=== PATIENT | male | born 1950 | race Caucasian/White ===

== ENCOUNTER 2020-10-04 20:18 | Emergency (ER) | payer MEDICARE, BC ==
--- NOTE | 2020-10-04 21:32 | EDM.PDOC ---
ED HPI GENERAL MEDICAL PROBLEM - General Chief Complaint: General Stated Complaint: ABNORMAL LAB RESULTS Time Seen by Provider: 10/04/20 21:25 Source of Information: Reports: Patient, Provider History Limitations: Reports: No Limitations - History of Present Illness INITIAL COMMENTS - FREE TEXT/NARRATIVE: This 70 yo male patient was advised to come to the ED by his Primary Care Facility due to an "elevated lab value". The patient did not know what lab was elevated. The patient reports he was seen today in the [facility] at 1500 today due to multiple issues. The patient reports he has been having shortness of breath and chest pain over the past 4 days. The patient reports his chest pain has actually been going on for longer than that, but does not know exactly when it started. The patient also report he has been having a migraine headache. The patient reports he did start taking Augmentin on his own due to chills that were present last night, but his chills were gone by this morning. The patient's provider did call to advise that the patient had an elevated D-dimer today, but no further evaluation was done as the clinic was closed by the time she got those results. Onset: Unknown/Unsure Duration: Week(s):, Constant, Getting Worse Location: Reports: Head, Chest Quality: Reports: Ache, Dull Severity: Moderate Improves with: Reports: None Worsens with: Reports: None Associated Symptoms: Reports: Chest Pain, Fever/Chills, Shortness of Breath Headache Pain Score (Numeric/FACES): 4 - Related Data Allergies Allergy/AdvReac Type Severity Reaction Status Date / Time aspirin Allergy Other Verified 01/02/20 14:44 ginkgo biloba Allergy Other Verified 01/02/20 14:44 ibuprofen [From Advil] Allergy Swelling Verified 01/02/20 14:44 Home Meds: Home Meds Doxazosin [Cardura] 4 mg PO DAILY 01/03/20 [History] Ketorolac [Toradol] 10 mg PO Q6HR PRN 01/03/20 [History] Tamsulosin [Flomax] 10/04/20 [History] Past Medical History HEENT History: Reports: None Cardiovascular History: Reports: Arrhythmia Respiratory History: Reports: None Gastrointestinal History: Reports: None Genitourinary History: Reports: Prostate Disorder Neurological History: Reports: Migraines Psychiatric History: Reports: None Endocrine/Metabolic History: Reports: None Immunologic History: Reports: None Oncologic (Cancer) History: Reports: None Dermatologic History: Reports: None - Infectious Disease History Infectious Disease History: Reports: None - Past Surgical History Head Surgeries/Procedures: Reports: None Social & Family History - Family History Family Medical History: No Pertinent Family History - Tobacco Use Tobacco Use Status *Q: Never Tobacco User Second Hand Smoke Exposure: No - Caffeine Use Caffeine Use: Reports: Coffee - Recreational Drug Use Recreational Drug Use: No ED ROS GENERAL - Review of Systems Review Of Systems: Comprehensive ROS is negative, except as noted in HPI. ED EXAM, GENERAL - Physical Exam Exam: See Below Exam Limited By: No Limitations General Appearance: Alert, WD/WN, Anxious, Thin Eye Exam: Bilateral Eye: EOMI, Normal Inspection, PERRL Ears: Normal External Exam, Normal Canal, Hearing Grossly Normal, Normal TMs Nose: Normal Inspection, Normal Mucosa, No Blood Throat/Mouth: Normal Inspection, Normal Lips, Normal Teeth, Normal Gums, Normal Oropharynx, Normal Voice, No Airway Compromise Head: Atraumatic, Normocephalic Neck: Normal Inspection, Supple, Non-Tender, Full Range of Motion Respiratory/Chest: No Respiratory Distress, Lungs Clear, Normal Breath Sounds, No Accessory Muscle Use, Chest Non-Tender Cardiovascular: Normal Peripheral Pulses, Regular Rate, Rhythm, No Edema, No Gallop, No JVD, No Murmur, No Rub, Extra Beats GI/Abdominal: Normal Bowel Sounds, Soft, Non-Tender, No Organomegaly, No Distention, No Abnormal Bruit, No Mass (Male) Exam: Deferred Rectal (Males) Exam: Deferred Back Exam: Normal Inspection, Full Range of Motion, NT Extremities: Normal Inspection, Normal Range of Motion, Non-Tender, Normal Capillary Refill, No Pedal Edema Neurological: Alert, Oriented, CN II-XII Intact, Normal Cognition, Normal Gait, Normal Reflexes, No Motor/Sensory Deficits Psychiatric: Anxious Skin Exam: Warm, Dry, Intact, Normal Color, No Rash Lymphatic: No Adenopathy #1 Interpretation EKG Date: 10/04/20 Time: 21:08 Rhythm: NSR Rate (Beats/Min): 97 [place]: Normal P-Wave: Present QRS: Normal ST-T: Normal QT: Normal EKG Interpretation Comments: with PAC's Course - Vital Signs Last Recorded V/S: Last Vital Signs Temp 97.9 F 10/04/20 21:04 Pulse 105 H 10/04/20 21:04 Resp 18 10/04/20 21:04 BP 138/85 10/04/20 21:04 Pulse Ox 96 10/04/20 21:04 - Orders/Labs/Meds Orders: Active Orders 24 hr Category Date Time Status EKG Documentation Completion [RC] STAT Care 10/04/20 21:19 Active Labs: Laboratory Tests 10/04/20 10/04/20 10/04/20 Range/Units 21:30 21:30 21:30 WBC 4.4 L (5.0-10.0) 10^3/uL RBC 4.82 (4.6-6.2) 10^6/uL Hgb 13.6 L (14.0-18.0) g/dL Hct 39.9 L (40.0-54.0) % MCV 82.8 (80-100) fL MCH 28.2 (27.0-34.0) pg MCHC 34.1 (33.0-35.0) g/dL Plt Count 142 L (150-450) 10^3/uL Neut % (Auto) 65.7 (42.2-75.2) % Lymph % (Auto) 17.6 L (20.5-50.1) % Catron % (Auto) 13.1 H (2-8) % Eos % (Auto) 2.5 (1.0-3.0) % Baso % (Auto) 1.1 H (0.0-1.0) % PT 10.9 (9.0-12.0) SEC INR 1.1 (0.9-1.2) D-Dimer, Quantitative 3620 H (0-400) ng/mL Sodium 142 (136-145) mmol/L Potassium 3.6 (3.5-5.1) mmol/L Chloride 107 (98-107) mmol/L Carbon Dioxide 27 (21-32) mmol/L Anion Gap 11.6 (7-13) mEq/L BUN 14 (7-18) mg/dL Creatinine 1.02 (0.70-1.30) mg/dL Est Cr Clr Drug Dosing 66.58 mL/min Estimated GFR (MDRD) > 60 BUN/Creatinine Ratio 13.7 (No establ ref range) Glucose 139 H (70-99) mg/dL Lactic Acid (0.4-2.0) mmol/L Calcium 8.2 L (8.5-10.1) mg/dL Total Bilirubin 0.3 (0.2-1.0) mg/dL AST 21 (15-37) U/L ALT 22 (16-63) U/L Alkaline Phosphatase 67 (46-116) U/L B-Natriuretic Peptide 52 (0-100) pg/ml Total Protein 6.0 L (6.4-8.2) g/dL Albumin 2.7 L (3.4-5.0) g/dL Globulin 3.3 Albumin/Globulin Ratio 0.82 /03/16 Range/Units 21:30 WBC (5.0-10.0) 10^3/uL RBC (4.6-6.2) 10^6/uL Hgb (14.0-18.0) g/dL Hct (40.0-54.0) % MCV (80-100) fL MCH (27.0-34.0) pg MCHC (33.0-35.0) g/dL Plt Count (150-450) 10^3/uL Neut % (Auto) (42.2-75.2) % Lymph % (Auto) (20.5-50.1) % Catron % (Auto) (2-8) % Eos % (Auto) (1.0-3.0) % Baso % (Auto) (0.0-1.0) % PT (9.0-12.0) SEC INR (0.9-1.2) D-Dimer, Quantitative (0-400) ng/mL Sodium (136-145) mmol/L Potassium (3.5-5.1) mmol/L Chloride (98-107) mmol/L Carbon Dioxide (21-32) mmol/L Anion Gap (7-13) mEq/L BUN (7-18) mg/dL Creatinine (0.70-1.30) mg/dL Est Cr Clr Drug Dosing mL/min Estimated GFR (MDRD) BUN/Creatinine Ratio (No establ ref range) Glucose (70-99) mg/dL Lactic Acid 1.7 (0.4-2.0) mmol/L Calcium (8.5-10.1) mg/dL Total Bilirubin (0.2-1.0) mg/dL AST (15-37) U/L ALT (16-63) U/L Alkaline Phosphatase (46-116) U/L B-Natriuretic Peptide (0-100) pg/ml Total Protein (6.4-8.2) g/dL Albumin (3.4-5.0) g/dL Globulin Albumin/Globulin Ratio Meds: Medications Discontinued Medications Generic Name Dose Route Start Last Admin Trade Name Freq PRN Reason Stop Dose Admin Iopamidol 100 ml 10/04/20 22:09 10/04/20 22:36 Iopamidol 755 Mg/Ml 100 Ml Bottle IVPUSH 10/04/20 22:10 100 ml ONETIME ONE Administration - Radiology Interpretation Free Text/Narrative:: [facility] Final Radiology Report Call: [phone] assistance Online chat: [email or web address] Name: MILTON MACHUCA Age: 70Years M Date: 10/04/2020 SSN: -- : [id number] Study: CT CHEST W CONT Requesting Physician: Anurag Russ Images: [id number] Addl Studies: Provided Clinical History: Short of breath, D-dimer 3620 Contrast: With Contrast Medium: [id number] Contrast Amount: 72 mL Contrast Method: Intravenous (IV) Page 1 of 2 PROCEDURE INFORMATION: Exam: CT Chest With Contrast; Diagnostic Exam date and time: 10/04/2020 10:46 PM Age: 70 years old Clinical indication: Other: Pe study; Additional info: Short of breath, d-dimer 3620 TECHNIQUE: Imaging protocol: Diagnostic computed tomography of the chest with contrast. Radiation optimization: All CT scans at this facility use at least one of these dose optimization techniques: automated exposure control; mA and/or kV adjustment per patient size (includes targeted exams where dose is matched to clinical indication); or iterative reconstruction. Contrast material: [id number]; Contrast volume: 72 ml; Contrast route: INTRAVENOUS (IV); COMPARISON: No relevant prior studies available. FINDINGS: Lungs: Fine curvilinear subsegmental atelectasis/scar at the bases bilaterally. Pleural spaces: Unremarkable. No pneumothorax. No pleural effusion. Heart: Unremarkable. No cardiomegaly. No pericardial effusion. Aorta: Motion artifact associated with the thoracic aorta limiting assessment for aortic dissection. Lymph nodes: Unremarkable. No enlarged lymph nodes. Kidneys and ureters: Scans of the upper abdomen demonstrate heterogeneously enhancing exophytic, 6.0 cm mass associated with the upper pole right kidney. 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 Soft tissues: Unremarkable. IMPRESSION: MILTON MACHUCA | Final Radiology Report CONFIDENTIALITY STATEMENT This report is intended only for use by the referring physician, and only in accordance with law. If you received this in error, call [phone]. Page 2 of 2 1. Negative for pulmonary embolus or thoracic aortic dissection. Assessment for thoracic aortic dissection is limited with regards to the ascending aorta due to motion artifact. 2. 6.0 cm exophytic right upper pole heterogeneously enhancing renal mass. This is renal cell carcinoma unless proven otherwise. COMMENTS: Consistent with the [employer]'s Incidental Findings Committee white paper (J Am Benjie Radiol 2018): Any incidental renal lesion less than 1 cm or classified as too small to characterize, or any incidental cystic renal lesion characterized as simple-ap pearing, is likely benign. No follow-up imaging is recommended for these lesions per consensus recommendations based on imaging criteria. Thank you for allowing us to participate in the care of your patient. Dictated and Authenticated by: Geraldine Jonas MD 10/04/2020 11:29 PM Central Time ([place] & [place]) Departure - Departure Time of Disposition: 23:44 Disposition: Home, Self-Care 01 Condition: Fair Clinical Impression: Elevated d-dimer, Right renal mass - Discharge Information *PRESCRIPTION DRUG MONITORING PROGRAM REVIEWED*: Not Applicable *COPY OF PRESCRIPTION DRUG MONITORING REPORT IN PATIENT DERICK: Not Applicable Forms: ED Department Discharge Care Plan Goals: The patient was advised of the examination, lab and CT results during the visit. The patient was encouraged to follow-up with his primary care facility due to finding a right renal mass. If the patient has any additional symptoms or concerns, the patient should either return to the emergency department or visit his primary care facility. Sepsis Event Note (ED) - Evaluation Sepsis Screening Result: No Definite Risk - Focused Exam Vital Signs: Vital Signs Temp Pulse Resp BP Pulse Ox 10/04/20 21:04 97.9 F 105 H 18 138/85 96 - My Orders Last 24 Hours: My Active Orders 10/04/20 21:19 EKG Documentation Completion [RC] STAT - Assessment/Plan Last 24 Hours: My Active Orders 10/04/20 21:19 EKG Documentation Completion [RC] STAT
[2020-10-04 21:56] LABS: ANION GAP 11.6 mEq/L (7-13); CHLORIDE,CL 107 mmol/L (98-107); SODIUM,NA 142 mmol/L (136-145)
[2020-10-04] MEDS ORDERED: Iopamidol 755 Mg/ML 100 ML Bottle IVPUSH ONE (22:09)
--- NOTE | 2020-10-04 23:30 | CT ---
PROCEDURE INFORMATION: Exam: CT Chest With Contrast; Diagnostic Exam date and time: 10/04/2020 10:46 PM Age: 70 years old Clinical indication: Other: Pe study; Additional info: Short of breath, d-dimer 3620 TECHNIQUE: Imaging protocol: Diagnostic computed tomography of the chest with contrast. Radiation optimization: All CT scans at this facility use at least one of these dose optimization techniques: automated exposure control; mA and/or kV adjustment per patient size (includes targeted exams where dose is matched to clinical indication); or iterative reconstruction. Contrast material: [id number]; Contrast volume: 72 ml; Contrast route: INTRAVENOUS (IV); COMPARISON: No relevant prior studies available. FINDINGS: Lungs: Fine curvilinear subsegmental atelectasis/scar at the bases bilaterally. Pleural spaces: Unremarkable. No pneumothorax. No pleural effusion. Heart: Unremarkable. No cardiomegaly. No pericardial effusion. Aorta: Motion artifact associated with the thoracic aorta limiting assessment for aortic dissection. Lymph nodes: Unremarkable. No enlarged lymph nodes. Kidneys and ureters: Scans of the upper abdomen demonstrate heterogeneously enhancing exophytic, 6.0 cm mass associated with the upper pole right kidney. 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 Soft tissues: Unremarkable. IMPRESSION: 1. Negative for pulmonary embolus or thoracic aortic dissection. Assessment for thoracic aortic dissection is limited with regards to the ascending aorta due to motion artifact. 2. 6.0 cm exophytic right upper pole heterogeneously enhancing renal mass. This is renal cell carcinoma unless proven otherwise. COMMENTS: Consistent with the [employer]'s Incidental Findings Committee white paper (J Am Benjie Radiol 2018): Any incidental renal lesion less than 1 cm or classified as too small to characterize, or any incidental cystic renal lesion characterized as simple-appearing, is likely benign. No follow-up imaging is recommended for these lesions per consensus recommendations based on imaging criteria.
== END 2020-10-04 23:59 | disposition home or self-care (01) ==
LOC: DL.ED 20:18
DX: N28.89 Other specified disorders of kidney and ureter (principal); R79.1 Abnormal coagulation profile; Z88.8 Allergy status to other drugs, medicaments and biological substances; Z91.048 Other nonmedicinal substance allergy status
CPT/HCPCS: 36415; 71260; 80053; 83605; 83880; 85025; 85379; 85610; 93005; 93010; 99284; 99285-25; Q9967

== ENCOUNTER 2022-09-12 12:32 | Emergency (ER) | payer MEDICARE, BC ==
[2022-09-12] MEDS ORDERED: Lidocaine 5% 700 MG Patch TOP ONE (15:22)
== END 2022-09-12 15:29 | disposition home or self-care (01) ==
LOC: DL.ED 12:32
DX: S80.02XA Contusion of left knee, initial encounter (principal); Z88.6 Allergy status to analgesic agent; Z91.018 Allergy to other foods; X58.XXXA Exposure to other specified factors, initial encounter; Y92.096 Garden or yard of other non-institutional residence as the place of occurrence of the external cause
CPT/HCPCS: 36415; 73562; 84550; 99283; A9270; 99284